=== PATIENT | female | born 1995 | race Caucasian/White ===

== ENCOUNTER → 2019-07-17 | Outpatient (REF) | payer BC | LOC: M WHC 18:34 | PROVIDERS: ATTEND Advanced Practice Midwife | DX: Z12.4 Encounter for screening for malignant neoplasm of cervix (principal) | CPT/HCPCS: 87624; G0123 ==

== ENCOUNTER 2019-08-14 14:18 | Emergency (ER) | payer OTHER, BC ==
[~2019-08-14] VITALS: Ht 175.3 cm; Wt 81.8 kg
[2019-08-14] MEDS ORDERED: SPIR-10 PO (14:28)
[2019-08-14] MEDS ORDERED: BENZ5GEL16 TOP (14:28)
[2019-08-14] MEDS ORDERED: TRET0.0540 TOP (14:28)
--- NOTE | 2019-08-14 15:03 | REP ---
CT brain: 08/14/2019. Indication: Head trauma. Comparison: None. Technique: Unenhanced axial CT images of the brain were performed with coronal reconstructions provided. Findings: There is no acute intracranial hemorrhage, acute cortical infarction, mass effect, hydrocephalus or acute calvarial fracture. Impression: No acute intracranial process. Electronically Signed by César Childs DO 08/14/2019 02:55 P
--- NOTE | 2019-08-14 15:08 | REP ---
CT cervical spine: 08/14/2019. Indication: Cervical spine trauma. Comparison: None. Technique: Unenhanced axial CT images of the cervical spine were performed with coronal and sagittal reconstructions provided. Findings: There is no acute fracture, subluxation or dislocation. There is minimal reversal of the cervical lordosis. No hemorrhage or additional acute post traumatic sequelae within the spinal canal are present. Right greater than left palatine tonsiliths are present. Impression: No acute osseous injuries of the cervical spine. Electronically Signed by César Childs DO 08/14/2019 03:00 P
[2019-08-14] MEDS ORDERED: ACETAMINOPHEN TAB 650MG DOSE (2X325MG) PO ONE (16:15)
[2019-08-14 16:34] VITALS: BP 131/71
== END 2019-08-14 16:35 | disposition home or self-care (01) ==
LOC: EDBD 14:18 → M ED 14:18
DX: S09.90XA Unspecified injury of head, initial encounter (principal); V49.49XA Driver injured in collision with other motor vehicles in traffic accident, initial encounter; Y92.410 Unspecified street and highway as the place of occurrence of the external cause

== ENCOUNTER 2019-09-10 23:54 | Emergency (ER) | payer BC, OTHER ==
[~2019-09-10] VITALS: Ht 175.3 cm; Wt 91.7 kg
[~2019-09-10 23:54] MED LIST: BENZ5GEL16 TOP; SPIR-10 PO; TRET0.0540 TOP
[2019-09-11 02:48] LABS: BASO % 0.3 % (0.0-1.0); EOS # 0.1 10^3/uL (0.0-0.5); EOS % 0.4 % (0.0-3.0); HEMATOCRIT 43.7 % (36.0-47.0); HEMOGLOBIN 14.3 g/dl (12.0-15.5); LYMPH # 2.5 10^3/uL (1.5-5.0); LYMPH % 22.3 % (24.0-44.0); MEAN CORPUSCULAR HEMOGLOBIN 30.4 pg (27.0-33.0); MEAN CORPUSCULAR HGB CONC 32.7 g/dl (32.0-36.5); MONO # 0.8 10^3/uL (0.0-0.8); MONO % 6.9 % (0.0-5.0); NEUTROPHILS # 7.8 10^3/uL (1.5-8.5); NEUTROPHILS % 69.7 % (36.0-66.0); PLATELET COUNT, AUTOMATED 333 10^3/uL (150-450); WHITE BLOOD COUNT 11.2 10^3/uL (4.0-10.0)
[2019-09-11 03:04] LABS: HCG, SERUM QUALITATIVE NEGATIVE (NEGATIVE)
[2019-09-11 03:12] LABS: ALBUMIN 3.6 GM/DL (3.2-5.2); ALT/SGPT 82 U/L (12-78); BILIRUBIN,DIRECT 0.2 MG/DL (0.0-0.2); BILIRUBIN,TOTAL 0.4 MG/DL (0.2-1.0); BLOOD UREA NITROGEN 10 MG/DL (7-18); CALCIUM LEVEL 9.3 MG/DL (8.5-10.1); CARBON DIOXIDE LEVEL 31 MEQ/L (21-32); CHLORIDE LEVEL 106 MEQ/L (98-107); CREATININE FOR GFR 0.75 MG/DL (0.55-1.30); GLOMERULAR FILTRATION RATE > 60.0 (>60); GLUCOSE, FASTING 98 MG/DL (70-100); LIPASE 86 U/L (73-393); POTASSIUM SERUM 3.9 MEQ/L (3.5-5.1); SODIUM LEVEL 140 MEQ/L (136-145); TOTAL PROTEIN 8.3 GM/DL (6.4-8.2)
--- NOTE | 2019-09-11 04:39 | REPVR ---
PROCEDURE INFORMATION: Exam: US Abdomen Limited, Right Upper Quadrant Exam date and time: 09/11/2019 3:56 AM Age: 23 years old Clinical indication: Abdominal pain; Epigastric; Additional info: Biliary colic TECHNIQUE: Imaging protocol: Real-time ultrasound of the abdomen with image documentation. Examination was focused on the right upper quadrant. COMPARISON: No relevant prior studies available. FINDINGS: Liver: Normal. No masses. Gallbladder: There are multiple calculi in the gallbladder. No gallbladder wall thickening or pericholecystic fluid. Common bile duct: No biliary duct dilation. Pancreas: The pancreas is not well visualized due to bowel gas. Right kidney: Normal. No mass. No hydronephrosis. IMPRESSION: Cholelithiasis. No biliary duct dilation or signs of cholecystitis. Electronically signed by: Villa Sarabia On 09/11/2019 04:39:18 AM
[2019-09-11] MEDS ORDERED: ISOVUE-370 76% 100ML VIAL (Q9967) As Ordered ONE (04:57)
[2019-09-11] MEDS: GASTROGRAFIN SOLUTION 30ML PO SCH (05:20)
--- NOTE | 2019-09-11 07:03 | REPVR ---
PROCEDURE INFORMATION: Exam: CT Abdomen And Pelvis With Contrast Exam date and time: 09/11/2019 4:44 AM Age: 23 years old Clinical indication: Abdominal pain; Other: Diffuse; Additional info: Diffuse abd pain TECHNIQUE: Imaging protocol: Computed tomography of the abdomen and pelvis with intravenous contrast. Radiation optimization: All CT scans at this facility use at least one of these dose optimization techniques: automated exposure control; mA and/or kV adjustment per patient size (includes targeted exams where dose is matched to clinical indication); or iterative reconstruction. Contrast material: ISO; Contrast volume: 100 ml; Contrast route: AC; Other contrast: Route: Oral, Material: ggraphin, Volume: 600; COMPARISON: US Abdomen 09/11/2019 3:49 AM FINDINGS: Lungs: The visualized portions of the lung bases are normal. Liver: There are several peripheral areas of hyperenhancement within the liver measuring up to 4.4 cm in diameter, with no definite associated mass effect and no corresponding lesions identified by ultrasound. Gallbladder and bile ducts: The gallbladder is partially contracted. Several stones containing gas are identified in the gallbladder. No gross adjacent inflammatory changes are identified. There is no biliary ductal dilation. Pancreas: The pancreas is normal with no ductal dilation. Spleen: The spleen is normal. Adrenals: The adrenal glands are normal. Kidneys and ureters: The kidneys are unremarkable. There are no ureteral stones or hydronephrosis. Stomach and bowel: There is no dilation or thickening of the colon. The small bowel appears unremarkable. Appendix: A normal appendix is identified. Intraperitoneal space: There is no evidence of free intraperitoneal or pelvic fluid. There is no free intraperitoneal air. Vasculature: No aortic aneurysm. Lymph nodes: No lymphadenopathy is seen. Bladder: The bladder is unremarkable. No stones identified. Reproductive: The uterus is unremarkable. Bones/joints: No suspicious osseous lesions. No acute fractures or dislocations. Soft tissues: There is a small periumbilical hernia containing fat. IMPRESSION: 1. No definite acute abnormality identified. 2. Cholelithiasis in a contracted gallbladder, as identified on the ultrasound. 3. Several areas of hyper enhancement within the liver which probably represents "flash filling" in this late arterial/early portal venous phase exam. In a low-risk patient, recommend further evaluation with liver MRI. In a high-risk patient, recommend further evaluation with liver MRI or biopsy. Electronically signed by: Kerri Snyder On 09/11/2019 07:02:51 AM
[2019-09-11] MEDS ORDERED: SUCR1TA PO (08:08)
[2019-09-11 08:19] VITALS: BP 130/83
== END 2019-09-11 08:21 | disposition home or self-care (01) ==
LOC: M ED 23:54
DX: R10.13 Epigastric pain (principal)
CPT/HCPCS: 36415; 74177; 76705; 80048; 80076; 81001; 83690; 84703; 85025; 87086; 99284; Q9963; Q9967

== ENCOUNTER 2019-10-13 09:15 | Day surgery (SDC) | payer BC ==
[~2019-10-13] VITALS: Ht 175.3 cm; Wt 83.9 kg
[~2019-10-13 09:15] MED LIST changes: +DICY20TA11 PO; +LR 1,000 ML IV ONE; +SUCR1TA PO; +VIEN1TAB PO
[2019-10-13] MEDS ORDERED: BUPIVACAINE HCL 0.25% 30 ML VIAL As Ordered ONE (12:33)
[2019-10-13] MEDS ORDERED: METOCLOPRAMIDE INJ 10MG/2ML VIAL (J2765) As Ordered ONE (12:50)
[2019-10-13] MEDS ORDERED: propofoL 200 MG/20 ML VIAL As Ordered ONE (12:50)
[2019-10-13] MEDS ORDERED: LIDOCAINE 2% INJ 100 MG/5 ML SDV (FOR ANES.) As Ordered ONE (12:50)
[2019-10-13] MEDS ORDERED: dexameTHASONE 4 MG/ML 1ML VIAL (J1100) As Ordered ONE (12:50)
[2019-10-13] MEDS ORDERED: ROCURONIUM BROMIDE 50 MG/5 ML VIAL As Ordered ONE (12:50)
[2019-10-13] MEDS ORDERED: MIDAZOLAM INJ 2 MG/2 ML VIAL (J2250) As Ordered ONE (12:50)
[2019-10-13] MEDS ORDERED: fentaNYL 250 MCG/5 ML INJECTION (J3010) As Ordered ONE (12:50)
[2019-10-13] MEDS ORDERED: ONDANSETRON 4MG/2ML VIAL (J2405) As Ordered ONE (12:50)
[2019-10-13] MEDS ORDERED: SUGAMMADEX SODIUM 500 MG/5 ML VIAL (BRIDION) As Ordered ONE (12:50)
[2019-10-13] MEDS ORDERED: KETOROLAC 60 MG/2 ML VIAL (J1885) As Ordered ONE (12:50)
[2019-10-13] MEDS ORDERED: ACETAMINOPHEN 1000MG 100ML IV BTL (OFIRMEV) (J0131 PER 10MG) As Ordered ONE (13:00)
[2019-10-13] MEDS: fentaNYL 100 MCG/2 ML INJECTION (J3010) IV PRN ×4 (14:15→14:30)
[2019-10-13] MEDS ORDERED: oxyCODONE 5MG TAB As Ordered ONE (14:15)
[2019-10-13] MEDS ORDERED: fentaNYL 100 MCG/2 ML INJECTION (J3010) As Ordered ONE (14:15)
[2019-10-13] MEDS ORDERED: LR 1,000 ML IV SCH (14:30)
[2019-10-13] MEDS ORDERED: oxyCODONE 5MG TAB PO PRN (14:30)
[2019-10-13] MEDS ORDERED: ONDANSETRON 4MG/2ML VIAL (J2405) IV PRN (14:30)
[2019-10-13] MEDS ORDERED: HYDROMORPHONE HCL 0.5 MG/ 0.5 ML SYRINGE (J1170 PER 1) IV PRN (14:30)
[2019-10-13] MEDS ORDERED: NORCO, ANEXSIA 5/325MG TABLET (HYDROcodone/ACETAMINOPHEN) PO PRN (14:45)
[2019-10-13] MEDS ORDERED: ACETAMINOPHEN TAB 650MG DOSE (2X325MG) PO PRN (14:45)
[2019-10-13] MEDS ORDERED: IBUPROFEN 600 MG TAB PO PRN (14:45)
[2019-10-13] MEDS ORDERED: HYDR-3715 PO (15:04)
[2019-10-13 15:40] VITALS: BP 117/59
--- NOTE | 2019-10-14 15:10 | RO ---
DATE OF PROCEDURE: 10/13/2019 PREOPERATIVE DIAGNOSIS: Symptomatic gallstones. POSTOPERATIVE DIAGNOSIS: Cholelithiasis with chronic cholecystitis. PROCEDURE PERFORMED: Laparoscopic cholecystectomy. SURGEON: Dr. Walker ANESTHESIA: General. INDICATIONS FOR THE PROCEDURE: Patient is a 23-year-old woman who has had several episodes of right upper quadrant abdominal pain and was found on investigation to have gallstones. She is now for a laparoscopic cholecystectomy. OPERATIVE PROCEDURE: The patient was brought to the operating room and placed on the table in a supine position. She was placed under general endotracheal anesthesia. The patient's abdomen was prepped and draped in a sterile fashion. 0.25% Marcaine was infiltrated at each of the trocar sites as needed. A short supraumbilical midline incision was made and a Veress needle was inserted. After a positive hanging drop test the abdomen was insufflated with carbon dioxide gas. An 11-mm port was placed over a 5 mm camera and advanced through the abdominal wall without difficulty. Initial examination showed normal-appearing liver. The portion of the stomach was well seen and appeared normal. The gallbladder appeared full but not overly distended and certainly not acutely inflamed. Visualized portions of small and large bowel were normal. The patient was tilted to a slight reverse Trendelenburg position and rolled slightly to the left. A 5-mm port was placed in the left upper quadrant and two 5 mm ports were placed in the right upper quadrant. Graspers were inserted and the gallbladder was grasped and elevated. Dissection was carried out at the gallbladder neck. The cystic duct was clearly identified and this was doubly clipped with hemoclips and divided. Likewise the cholecystic artery was clearly identified and this was doubly clipped with hemoclips and divided. The gallbladder was then dissected free from the gallbladder bed using cautery dissection. The gallbladder was not perforated in the course of dissection. The gallbladder was placed in an Endopouch. The right upper quadrant was irrigated and inspected. Hemostasis was ensured with the cautery. Final inspection revealed no evidence of bleeding or bile leak. The patient was returned to a flat position. The abdomen was deflated and the trocars were removed. The gallbladder was recovered through the supraumbilical site. This necessitated extending the incision slightly because of her gallstones. The peritoneum was then closed with 2-0 Vicryl. The fascia was closed with interrupted simple sutures of 2-0 Vicryl. The skin incisions were all closed with buried 4-0 Vicryl and Steri-Strips. Light dressings were applied. The gallbladder was opened off the field and contained multiple stones ranging from a few millimeters to as much as a centimeter. This was sent for permanent pathology. The patient was awakened in the operating room, extubated and moved to the recovery room in stable condition.
== END 2019-10-13 16:15 | disposition home or self-care (01) ==
LOC: M SDC 09:15
PROVIDERS: ATTEND Surgery
DX: K80.10 Calculus of gallbladder with chronic cholecystitis without obstruction (principal); Z79.899 Other long term (current) drug therapy
CPT/HCPCS: 47562; 81025; 88304; J0131; J1100; J1885; J2250; J2405; J2765; J3010

== ENCOUNTER → 2020-01-12 | Outpatient (CLI) | payer BC ==
[~2020-01-12] MED LIST changes: +HYDR-3715 PO; -LR 1,000 ML IV ONE
[2020-01-12 12:43] LABS: ALBUMIN 3.7 GM/DL (3.2-5.2); ALT/SGPT 23 U/L (12-78); BILIRUBIN,DIRECT 0.2 MG/DL (0.0-0.2); BILIRUBIN,TOTAL 0.5 MG/DL (0.2-1.0); FERRITIN 42 NG/ML (8-252); IRON (FE) 152 UG/DL (50-170); PERCENT SATURATION 55.5 % (13.2-45.0); TOTAL IRON BINDING CAPACITY 274 UG/DL (250-450); TOTAL PROTEIN 7.7 GM/DL (6.4-8.2)
[2020-01-13 09:21] LABS: HEPATITIS B SURFACE ANTIBODY POSITIVE (POSITIVE)
[2020-01-13 09:31] LABS: HEPATITIS B SURFACE ANTIGEN NEGATIVE (NEGATIVE)
[2020-01-13 14:11] LABS: CERULOPLASMIN 47.1 mg/dL (19.0-39.0)
[2020-01-13 16:08] LABS: ALPHA 1 ANTITRYPSIN 162 mg/dL (100-188); ANTI-MITOCHONDRIAL ANTIBODY <20.0 Units (0.0-20.0); ANTI-SMOOTH MUSCLE ANTIBODY 5 Units (0-19); ANTINUCLEAR ANTIBODIES DIRECT Negative (Negative); HEPATITIS A IgG TOTAL Positive (Negative); LIVER-KIDNEY MICROSOMAL ABY <20.1 Units (0.0-20.0)
== END ==
LOC: M PLALAB 09:06
PROVIDERS: ATTEND Internal Medicine Gastroenterology
DX: R93.2 Abnormal findings on diagnostic imaging of liver and biliary tract (principal)
CPT/HCPCS: 36415; 80076; 82103; 82105; 82390; 82728; 83550; 86038; 86255; 86376; 86706; 86708; 87340; G0472

== ENCOUNTER → 2020-03-30 | Outpatient (CLI) | payer BC ==
--- NOTE | 2020-05-02 12:00 | REP ---
ABDOMINAL RIGHT UPPER QUADRANT ULTRASOUND: HISTORY: The study is performed for evaluation of known hepatic masses. FINDINGS: The patient has 3 known hepatic masses identified on a prior contrast-enhanced abdomen/pelvis CT dated 09/11/19 and on an outside abdomen MRI without and with IV contrast dated 09/21/19. The patient had a prior right upper quadrant ultrasound on 09/11/19. The known hepatic masses could not be identified by ultrasound on this prior ultrasound study. On our ultrasound study today, these masses again are not definitely identified by ultrasound. On the ultrasound today, there is a vague hypoechoic zone anteriorly in the hepatic right lobe measuring 5.3 x 2.2 x 5.0 cm. On the comparison CT, there is an enhancing lesion anteriorly in the liver that measured 1.8 x 1.6 cm. The hypoechoic zone is nonspecific and could represent a focal parenchymal abnormality in the liver or it could represent the lesion anteriorly in the liver that has increased in size. By CT there is an enhancing lesion laterally in the liver that measures 3.6 x 1.9 cm and there is an enhancing lesion at the inferior tip of the right lobe that measures 2.7 x 2.2 cm. I suspect there is also a small enhancing lesion posteriorly in the right lobe that measures 7.5 x 7.3 mm. None of these enhancing lesions are identified with certainty by ultrasound today. The hepatic parenchyma is otherwise unremarkable. The patient has had a cholecystectomy. There is no intrahepatic or extrahepatic biliary duct dilatation. The common duct measures 3 mm in diameter. The visualized areas of the pancreas are unremarkable. The right kidney measures 9.8 x 5.3 x 3.9 cm and is in the low normal size range. There is no right renal hydronephrosis, calculus, mass or cyst. IMPRESSION: There is a hypoechoic zone anteriorly in the right lobe of the liver that does not definitely correspond to any of the patient's known hepatic lesions. This could possibly represent a previously identified lesion in the liver that has increased in size. None of these hepatic lesions could be seen by ultrasound on the prior ultrasound examination. I would recommend follow up hepatic MRI for further evaluation of these hepatic lesions to determine if there is size increase in any of these lesions. If malignant disease is a clinical consideration, follow up PET scan might also be considered. Biopsy may ultimately be required. MTDD
== END ==
LOC: M RAD 07:53
PROVIDERS: ATTEND Internal Medicine Gastroenterology
DX: R93.2 Abnormal findings on diagnostic imaging of liver and biliary tract (principal)

== ENCOUNTER → 2020-06-16 | Outpatient (REF) | payer BC | LOC: M LAB REF 11:29 | PROVIDERS: ATTEND Internal Medicine Gastroenterology | DX: R19.7 Diarrhea, unspecified (principal) ==

== ENCOUNTER → 2020-08-31 | Outpatient (REF) | payer BC | LOC: M SFHCWAGY 17:11 | PROVIDERS: ATTEND Advanced Practice Midwife | DX: Z01.411 Encounter for gynecological examination (general) (routine) with abnormal findings (principal) | CPT/HCPCS: 87624; G0123 ==

== ENCOUNTER → 2020-09-09 | Outpatient (CLI) | payer BC ==
--- NOTE | 2020-09-09 17:05 | REP ---
INDICATION: ABNORMAL FINDING OF LIVER. Patient is status post cholecystectomy October of 2019. COMPARISON: Comparison CT study 11 September 2019. Comparison MRI exam [facility], [place] September 21, 2019.. TECHNIQUE: Axial and coronal imaging planes utilized. T1 and T2 weighted sequences include spin echo, fast spin echo, diffusion-weighted scans, in and out of phase, and dynamically acquired sequential postcontrast T1 weighted fat sat images. Gadolinium enhancement dose is 17 mL of intravenous ProHance. FINDINGS: Previous studies have shown for hepatic mass lesions. These are again seen and appear to be essentially unchanged from comparison CT study of 11 September 2019. These display greatest diameters of 4.6, 2.3, 2.0, and 1.6 cm respectively. Each of these is essentially isointense on T2 weighted scans and isointense to very slightly hypointense on T1 weighted scans. They do not produce restricted diffusion. They a show hypervascular enhancement on the 32nd post contrast sequence. Subsequent dynamic post-contrast images demonstrate considerable washout and ultimately they are essentially isointense with liver parenchymal enhancement. No new liver lesion is appreciated. No biliary ductal dilation is observed. The gallbladder is surgically absent. There is a 1 cm cyst in the periphery of the spleen unchanged as well. No pancreatic or renal abnormality is observed. Scan is otherwise unremarkable. IMPRESSION: Stable hypervascular liver lesions most compatible with focal nodular hyperplasia or multiple hepatic adenomas. The largest of these measures 4.6 cm in greatest diameter. Consider interval MR follow-up in 1-2 years. <Electronically signed by Edmar Hartley > 09/09/20 0521
== END ==
LOC: M PLARAD 12:55
PROVIDERS: ATTEND Internal Medicine Gastroenterology
DX: R93.2 Abnormal findings on diagnostic imaging of liver and biliary tract (principal); K76.89 Other specified diseases of liver

== ENCOUNTER → 2020-09-30 | Outpatient (REF) | payer BC | LOC: M PLALAB 12:53 | PROVIDERS: ATTEND Obstetrics & Gynecology | DX: R87.610 Atypical squamous cells of undetermined significance on cytologic smear of cervix (ASC-US) (principal) ==

== ENCOUNTER → 2020-10-28 | Outpatient (REF) | payer BC | LOC: M LAB REF 14:08 | PROVIDERS: ATTEND Physician Assistant | DX: D23.60 Other benign neoplasm of skin of unspecified upper limb, including shoulder (principal) ==

== ENCOUNTER → 2020-12-13 | Outpatient (REF) | payer BC | LOC: M SFHCWAGY 11:00 | PROVIDERS: ATTEND Obstetrics & Gynecology | DX: R39.15 Urgency of urination (principal) ==